=== PATIENT | female | born 1965 | race Caucasian/White ===

== ENCOUNTER 2017-02-12 08:23 | Inpatient (IN) ==
--- NOTE | 2017-02-12 14:21 | Event Note ---
Date of Encounter: 02/12/17 Time of Encounter: 14:18 Patient seen and examined with certified medical dosimetrist. Community acquired pneumonia and viral influenza. Start the patient on Levaquin, Tamiflu, nebulizer treatments as needed and rather add oral steroids. She developed supraventricular tachycardia. Mentioned that she has not taken her beta blockers. Will resume that. Check echocardiogram, thyroid functions, electrolytes serial troponin. Patient is full code.
[2017-02-12 15:41] LABS: Basophils % 0.1 %; Hematocrit 41.7 % (35.3-44.9); Hemoglobin 13.5 g/dL (11.5-15.4); Immature Granulocytes % 0.1 % (0-4); Lymphocytes # 1.5 K/mcL (0.6-4.6); Lymphocytes % 19.8 %; Mean Corpuscular HGB Conc 32.4 g/dL (31.6-35.5); Mean Corpuscular Hemoglobin 29.7 pg (28.0-33.3); Mean Corpuscular Volume 91.9 fL (83.0-100.0); Mean Platelet Volume 10.2 fL (9.4-12.4); Monocytes # 0.4 K/mcL (0.0-1.3); Monocytes % 4.8 %; Neutrophils # 5.7 K/mcL (1.6-8.9); Platelet Count 116 K/mcL (140-400); Red Blood Count 4.54 M/mcL (3.82-4.97); Red Cell Distribution Width 13.4 % (11.5-14.5); Segmented Neutrophils % 75.2 %
[2017-02-12 15:49] LABS: BUN/Creatinine Ratio 13 (6-26); Blood Urea Nitrogen 7 mg/dL (6-20); Carbon Dioxide 30 mEq/L (23-29); Chloride 106 mEq/L (98-107); Glucose 104 mg/dL (70-105); Magnesium 1.3 mg/dL (1.6-2.6); Osmolality,Calculated 290 (280-300); Potassium 3.2 mEq/L (3.5-5.1); Sodium 141 mEq/L (136-145); eGFR For African Americans > 60 (> 60); eGFR For Non-African Americans > 60 (> 60)
--- NOTE | 2017-02-12 15:51 | Internal Med History&Physical ---
Date of Encounter: 02/12/17 Time of Encounter: 15:00 Assessment and Plan (1) SVT (supraventricular tachycardia) Current visit: Yes Status: Acute Resolved currently Restarted home atenolol Will continue to monitor Checking echo, electrolytes, thyroid panel, and trending troponins (2) Pneumonia Current visit: Yes Status: Acute Possible LLL PNA. Started levaquin 750 mg daily Patient has 30+ pack years of smoking history Started prednsione 40 mg x 5 days breathing treatments q4 hrs as needed Qualifiers: Pneumonia type: due to unspecified organism Laterality: left Lung location: lower lobe of lung Qualified Code(s): J18.1 - Lobar pneumonia, unspecified organism (3) Influenza B Current visit: Yes Status: Acute Tested positive on swab Started Tamiflu 30 mg daily x 5 doses Isolation precautions (4) Elevated troponin I level Current visit: Yes Status: Acute Mildly elevated at 0.04 Will trend q6 hours for 2 additional draws (5) Back pain Current visit: Yes Status: Chronic Continue home medications Qualifiers: Back pain location: back pain in unspecified location Chronicity: chronic Back pain laterality: unspecified Qualified Code(s): M54.9 - Dorsalgia, unspecified; G89.29 - Other chronic pain; G89.29 - Other chronic pain Internal Medicine - H&P: HPI Chief complaint: Fever, cough, weakness, palpitations Admitted From: Emergency Dept Plans for Post Hospital Care: Home History of present illness: Ms. Paulino is a 52 year old female with 5 day history of fever, anorexia, and productive cough. The cough produces a thick, yellow sputum. She additionally noted body aches, and, more recently, palpitations. She admits to some exertional shortness of breath and weakness. Patient initially presented to [facility] and was found to have Flu B on swab, LLL PNA vs atelectasis, and SVT into the 180s. She slipped between SVT and sinus rhythm multiple times with valsalva and 1 dose of adenosine. Ultimately, lopressor was successful in controlling her rate. Patient has approximately 30 pack years of smoking history, but has recently cut back to 1 pack/3 weeks. Medical history is significant for an episode of SVT about 15 years ago, as well as restless leg syndrome and chronic back pain. Past Med Surg Social Fam HX - Past Medical History Medical history: hyperlipidemia, hypertension, SVT Psychiatric history: no psych history - Social History Smoking Status: Current every day smoker Packs per day: 0.05 Smokeless Tobacco Status: No Alcohol use: rarely Drug use: none Internal Medicine - H&P: Meds Atenolol [Tenormin] 25 mg PO DAILY 02/12/17 [History] Cyclobenzaprine [Flexeril] 10 mg PO TID 02/12/17 [History] Fentanyl [Duragesic] 75 mcg TD Q72H 02/12/17 [History] Gabapentin [Neurontin] 400 mg PO TID 02/12/17 [History] HYDROcodone/Acet 7.5/325 mg [[place] 7.5-325 mg] 1 tab PO Q6H PRN 02/12/17 [ History] Ibuprofen [Motrin] 800 mg PO Q8HR 02/12/17 [History] LORazepam [Ativan] 0.5 mg PO BID PRN 02/12/17 [History] Lisinopril [Zestril] 20 mg PO DAILY 02/12/17 [History] hydroCHLOROthiazide [Hydrochlorothiazide] 25 mg PO DAILY 02/12/17 [History] 3 Allergy/AdvReac Type Severity Reaction Status Date / Time No Known Allergies Allergy Verified 02/12/17 06:23 All Systems PM: A 10-system review of systems was performed and is negative for pertinent findings except as documented above in the HPI. - Constitutional Vitals: Temp Pulse Resp BP Pulse Ox 98.6 F 92 19 102/56 90 02/12/17 10:20 02/12/17 10:20 02/12/17 10:20 02/12/17 10:20 02/12/17 10:20 General appearance: Present: cooperative, A&O X 3, pleasant, answers questions appropriately - Head Head exam: Present: atraumatic, normal inspection, normocephalic - ENT ENT exam: Present: mucous membranes moist - Neck Neck exam general surgery: Present: trachea midline - Respiratory Respiratory exam: Present: decreased breath sounds. Absent: accessory muscle use, respiratory distress - Cardiovascular Cardiovascular exam: Present: RRR, +S1, +S2 - GI/Abdominal GI/Abdominal exam: Present: normal bowel sounds, soft, no peritoneal signs. Absent: tenderness - Extremities Exam Extremities exam: Absent: pedal edema - Neurological Exam Neurological exam: Present: alert, oriented X3 - Psychiatric Psychiatric exam: Present: normal affect, normal mood. Absent: agitated, anxious - Skin Skin exam: Present: dry, warm Internal Med - H&P Results - Labs CBC & Chem 7: 02/12/17 14:27 02/12/17 14:27
[2017-02-12] MEDS ORDERED: *HR* LORazepam 0.5 MG TABLET PO PRN (16:14)
[2017-02-12] MEDS ORDERED: *HR* FentaNYL PATCH 75 MCG PATCH TD SCH (16:15)
[2017-02-12] MEDS ORDERED: Oseltamivir Phosphate 30 MG CAPSULE PO SCH (16:30)
[2017-02-12] MEDS ORDERED: Naloxone 0.4 MG/ML INJ IVP PRN (16:35)
[2017-02-12] MEDS ORDERED: Ondansetron 4 MG/2 ML VIAL IVP PRN (16:35)
[2017-02-12] MEDS: Ipratropium/Albuterol Neb 3 ML IH PRN (17:04)
[2017-02-12 17:22] LABS: Toxic Granulation Present (Not Present)
[2017-02-12] MEDS: predniSONE 20 MG TABLET PO SCH (18:41)
[2017-02-12] MEDS: *HR* HYDROcodone/Acet 7.5/325 mg TABLET PO PRN (18:41)
[2017-02-12] MEDS: Levofloxacin 750 MG/150 ML 750 MG/150 ML BAG IVPB SCH (20:01)
[2017-02-12] MEDS: Gabapentin 400 MG CAPSULE PO SCH (20:02)
[2017-02-13 05:49] LABS: Hematocrit 40.7 % (35.3-44.9); Hemoglobin 13.2 g/dL (11.5-15.4); Mean Corpuscular HGB Conc 32.4 g/dL (31.6-35.5); Mean Corpuscular Hemoglobin 29.5 pg (28.0-33.3); Mean Corpuscular Volume 90.8 fL (83.0-100.0); Mean Platelet Volume 10.2 fL (9.4-12.4); Platelet Count 118 K/mcL (140-400); Red Blood Count 4.48 M/mcL (3.82-4.97); Red Cell Distribution Width 13.4 % (11.5-14.5)
[2017-02-13 05:58] LABS: BUN/Creatinine Ratio 18 (6-26); Blood Urea Nitrogen 8 mg/dL (6-20); Calcium 8.3 mg/dL (8.6-10.3); Carbon Dioxide 27 mEq/L (23-29); Chloride 108 mEq/L (98-107); Glucose 92 mg/dL (70-105); Osmolality,Calculated 290 (280-300); Potassium 3.7 mEq/L (3.5-5.1); Sodium 141 mEq/L (136-145); eGFR For African Americans > 60 (> 60); eGFR For Non-African Americans > 60 (> 60)
[2017-02-13 06:30] LABS: Monocytes # 0.5 K/mcL (0.0-1.3); Neutrophils # 5.3 K/mcL (1.6-8.9); Platelet Estimate Slight Decrease (Normal)
[2017-02-13] MEDS: *HR* HYDROcodone/Acet 7.5/325 mg TABLET PO PRN ×2 (06:31→13:08)
--- NOTE | 2017-02-13 09:10 | Cardiology Consult Note ---
<Jacob Hitchcock - Last Filed: 02/13/17 12:57> Date of Encounter: 02/13/17 Time of Encounter: 09:00 Assessment and Plan (1) SVT (supraventricular tachycardia) Current Visit: Yes Status: Acute Patient initially presented to [facility]; was found to have SVT with a heart rate in the 180s. -Patient admitted that she had not been taking her beta blockers. -Patient's heart rate is currently well controlled at 71 bpm. -Admits to a prior episode of SVT approximately 15 years ago. -TSH was within normal limits. ECHO demonstrated the following: -LVEF 60-65%. -Mild left ventricular diastolic dysfunction. -Normal right ventricular structure and function. -No significant valvular dysfunction. -No pulmonary hypertension. Plan: -Atenolol 25 mg PO QD -Cardiac diet -Continuous telemetry -Rate is currently well controlled; cardiology will sign off. Patient should have stress test in the outpatient setting through PCP. (2) Elevated troponin Current Visit: Yes Status: Acute Patient's troponin was slightly elevated on presentation at 0.04. Subsequent troponin levels were as follows: 0.03, 0.03. Possibly due to demand ischemia. Plan: -Continuous telemetry. (3) Hypertension Current Visit: Yes Status: Acute Pressure currently well-controlled. Continue medical therapy: -Hydrochlorothiazide 25 mg PO QD -Lisinopril 20 mg PO QD Qualifiers: Qualified Code(s): I10 - Essential (primary) hypertension Discussion w patient/family: The assessment and plan as outlined above was discussed with the patient and/or family members who expressed understanding and agreement. All questions were answered. Thank you for involving us in the care of your patient. Please call with any questions. History of Present Illness Consult date: 02/13/17 History of present illness: Ms. Paulino is a 52 year old female with a PMH of restless leg syndrome, chronic back pain, and tobacco abuse (30 pack years) who presented to the hospital with a chief complaint of a five-day history of fever, anorexia, and productive cough. Patient had thick yellow sputum. Reported body aches and palpitations as well. She also had shortness of breath and weakness. Initially presented to [facility]; was diagnosed with a LLL PNA and was diagnosed with influenza B. She also was found to have SVT with a HR into the 180s. Slipped between SVT and sinus rhythm multiple times with Valsalva and 1 dose of adenosine. HR was successfully controlled with Lopressor. Patient admits to having a previous episode of SVT approximately 15 years ago. Patient admitted that she had not been taking her beta blockers. Patient was started on Levaquin for the treatment of her pneumonia. Atenolol 25 mg by mouth daily was started. TSH and troponin were drawn; TSH was within normal limits. Troponin was initially elevated at 0.04; subsequent troponin levels were 0.03 and 0.03. Patient was also started on duo nebs, Tamiflu, and prednisone. Patient was seen and examined bedside this morning. Patient states that she is feeling well. Admits to having some cough, but denies having any shortness of breath, chest pain, nausea, vomiting, palpitations, fever, or chills. Patient is resting comfortably in bed and knows no complaints at this time. Past Med Surg Social Fam HX - Past Medical History Medical history: hyperlipidemia, hypertension, SVT Psychiatric history: no psych history - Social History Smoking Status: Current every day smoker Packs per day: 0.05 Smokeless Tobacco Status: No Alcohol use: rarely Drug use: none Medications and Allergies Atenolol [Tenormin] 25 mg PO DAILY 02/12/17 [History] Cyclobenzaprine [Flexeril] 10 mg PO TID 02/12/17 [History] Fentanyl [Duragesic] 75 mcg TD Q72H 02/12/17 [History] Gabapentin [Neurontin] 400 mg PO TID 02/12/17 [History] HYDROcodone/Acet 7.5/325 mg [[place] 7.5-325 mg] 1 tab PO Q6H PRN 02/12/17 [ History] Ibuprofen [Motrin] 800 mg PO Q8HR 02/12/17 [History] LORazepam [Ativan] 0.5 mg PO BID PRN 02/12/17 [History] Lisinopril [Zestril] 20 mg PO DAILY 02/12/17 [History] hydroCHLOROthiazide [Hydrochlorothiazide] 25 mg PO DAILY 02/12/17 [History] 3 Allergy/AdvReac Type Severity Reaction Status Date / Time No Known Allergies Allergy Verified 02/12/17 06:23 All Systems Review: A 10-system review of systems was performed and is negative for pertinent findings except as documented above in the HPI. - Cardiovascular Cardiovascular: no chest pain at rest, no chest pain with exertion, no dyspnea on exertion, no irregular heart rhythm, no radiating jaw, neck or arm pain - Respiratory Respiratory: cough, no dyspnea - Neurological Neurological: no syncope Physical Examination Vital Signs, Last 4 Hours Temp Pulse Resp BP Pulse Ox 02/13/17 07:22 97.1 F L 71 16 100/67 93 General: Conversant, No Apparent Distress HEENT: Atraumatic, Normocephaly, Mucus Membranes Moist Neck: No JVD, Normal carotid pulses Cardiac: Reg Rate and Rhythm, No Murmur Lungs: Other (diffuse crackles ) Neuro: Alert and responsive, No focal deficits noted Skin: No rashes noted on visualized skin Musculoskeletal: No Chest Wall Tenderness Extremities: No Clubbing, No Cyanosis, No Edema, Normal Pulses Results 02/13/17 05:26 02/13/17 05:26 Lab Results 02/12/17 02/12/17 02/12/17 14:27 14:27 14:27 WBC 7.6 Hgb 13.5 D Hct 41.7 Plt Count 116 L Sodium 141 Potassium 3.2 L Chloride 106 Carbon Dioxide 30 H BUN 7 Creatinine 0.52 L Glucose 104 Calcium 8.0 L Magnesium 1.3 L Troponin I 0.04 H* TSH 0.410 02/12/17 02/13/17 02/13/17 20:30 05:26 05:26 WBC 6.8 Hgb 13.2 Hct 40.7 Plt Count 118 L Sodium 141 Potassium 3.7 Chloride 108 H Carbon Dioxide 27 BUN 8 Creatinine 0.44 L Glucose 92 Calcium 8.3 L Magnesium Troponin I 0.03 TSH 02/13/17 05:26 WBC Hgb Hct Plt Count Sodium Potassium Chloride Carbon Dioxide BUN Creatinine Glucose Calcium Magnesium Troponin I < 0.03 TSH Consult Discharge Plan - Plan Referrals: Lazaro Bae MD [Primary Care Provider] - 02/19/17 3:15 pm (Please follow up as schedule...) <Scooby Metcalf - Last Filed: 02/13/17 14:46> Date of Encounter: 02/13/17 - Attending Attestation I examined this patient and my medical decision-making was reviewed with the Resident Physician. I agree with the documented findings, disposition and treatment plan as described except to the extent set forth below. 52 YOF with h/o SVT presents with episode of palpitation found to have HR >160 SVT possible EAT was off her BB last few days possibly culprit Multiple cardiac risk factors, recommend OP NST Resume BB as previously prescribed Assessment and Plan Discussion w patient/family: The assessment and plan as outlined above was discussed with the patient and/or family members who expressed understanding and agreement. All questions were answered. Thank you for involving us in the care of your patient. Please call with any questions. History of Present Illness History of present illness: Ms. Paulino is a 52 year old female All Systems Review: A 10-system review of systems was performed and is negative for pertinent findings except as documented above in the HPI. Physical Examination Vital Signs, Last 4 Hours Temp Pulse Resp BP Pulse Ox 02/13/17 11:33 98.4 F 77 16 120/78 95 Results 02/13/17 05:26 02/13/17 05:26 Lab Results 02/12/17 02/12/17 02/12/17 14:27 14:27 14:27 WBC 7.6 Hgb 13.5 D Hct 41.7 Plt Count 116 L Sodium 141 Potassium 3.2 L Chloride 106 Carbon Dioxide 30 H BUN 7 Creatinine 0.52 L Glucose 104 Calcium 8.0 L Magnesium 1.3 L Troponin I 0.04 H* TSH 0.410 02/12/17 02/13/17 02/13/17 20:30 05:26 05:26 WBC 6.8 Hgb 13.2 Hct 40.7 Plt Count 118 L Sodium 141 Potassium 3.7 Chloride 108 H Carbon Dioxide 27 BUN 8 Creatinine 0.44 L Glucose 92 Calcium 8.3 L Magnesium Troponin I 0.03 TSH 02/13/17 02/13/17 05:26 05:26 WBC Hgb Hct Plt Count Sodium Potassium Chloride Carbon Dioxide BUN Creatinine Glucose Calcium Magnesium 2.0 Troponin I < 0.03 TSH
[2017-02-13] MEDS: Levofloxacin 750 MG/150 ML 750 MG/150 ML BAG IVPB SCH (09:21)
[2017-02-13] MEDS: Lisinopril 20 MG TABLET PO SCH (09:22)
[2017-02-13] MEDS: hydroCHLOROthiazide 25 MG TABLET PO SCH (09:22)
[2017-02-13] MEDS: Gabapentin 400 MG CAPSULE PO SCH ×3 (09:22→19:40)
[2017-02-13] MEDS: predniSONE 20 MG TABLET PO SCH (09:22)
--- NOTE | 2017-02-13 11:54 | Internal Med Progress Note ---
Date of Encounter: 02/13/17 Time of Encounter: 11:52 - Assessment and plan (1) Pneumonia Current Visit: Yes Status: Acute Assessment and plan: Chest x-ray suggestive of left basal infiltrate. Continue IV Levaquin, supplemental oxygen. Follow-up blood cultures. Qualifiers: Pneumonia type: due to unspecified organism Laterality: left Lung location: lower lobe of lung Qualified Code(s): J18.1 - Lobar pneumonia, unspecified organism (2) Influenza B Current Visit: Yes Status: Acute Assessment and plan: Rapid influenza nasal swab tested positive for influenza B. However, it has been at least 5 days since symptom onset, will hold Tamiflu at this time. Continue supportive care, bronchodilators, oral steroids and antibiotics. (3) Tobacco abuse Current Visit: Yes Status: Chronic Assessment and plan: Smoking cessation counseling done. Patient will consider quitting smoking as an outpatient. (4) Acute respiratory failure Current Visit: Yes Status: Acute Assessment and plan: Due to underlying pneumonia and influenza. Continue supplemental oxygen. Patient will require home oxygen evaluation prior to discharge. Qualifiers: Respiratory failure complication: hypoxia Qualified Code(s): J96.01 - Acute respiratory failure with hypoxia (5) SVT (supraventricular tachycardia) Current Visit: Yes Status: Acute Assessment and plan: Presented with tachycardia and palpitations, noted to have supraventricular tachycardia, converted to sinus rhythm with a dose of IV adenosine. Patient was supposed to be on atenolol at home, but she may have missed a few doses for the last few doses. Cardiology consulted, with follow-up recommendations. Echocardiogram shows preserved ejection fraction, mild left ventricular diastolic dysfunction. Continue telemetry monitoring. (6) Hypertension Current Visit: Yes Status: Chronic Qualifiers: Hypertension type: essential hypertension Qualified Code(s): I10 - Essential (primary) hypertension - Subjective Interval history: Feels better; improving weakness, malaise, cough, shortness of breath; requires NC O2; no nausea, vomiting, fever, chills; - Constitutional Vitals: Temp Pulse Resp BP Pulse Ox 98.4 F 77 16 120/78 95 02/13/17 11:33 02/13/17 11:33 02/13/17 11:33 02/13/17 11:33 02/13/17 11:33 General appearance: Present: A&O X 3, answers questions appropriately - Respiratory Respiratory exam: Present: decreased breath sounds (at B/L bases), CTAB, rhonchi (intermittent rhonchi at left base). Absent: accessory muscle use, rales, wheezes - Cardiovascular Cardiovascular exam: Present: RRR, +S1, +S2. Absent: diastolic murmur, gallop, rubs, systolic murmur - GI/Abdominal GI/Abdominal exam: Present: normal bowel sounds, soft, no peritoneal signs. Absent: distended, tenderness - Extremities Exam Extremities exam: Present: full ROM, warm, radial pulses palpable and symmetrical. Absent: calf tenderness, cyanotic, pedal edema - Neurological Exam Neurological exam: Present: CN II-XII intact, oriented X3, no focal deficits. Absent: pronater drift, facial droop, speech deficit Internal Medicine: Result - Labs CBC & Chem 7: 02/13/17 05:26 02/13/17 05:26 Labs: Short CBC 02/12/17 02/13/17 Range/Units 14:27 05:26 WBC 7.6 6.8 (4.3-11.1) K/mcL Hgb 13.5 D 13.2 (11.5-15.4) g/dL Hct 41.7 40.7 (35.3-44.9) % Plt Count 116 L 118 L (140-400) K/mcL Neutrophils # 5.7 5.3 (1.6-8.9) K/mcL BMP 02/12/17 02/13/17 14:27 05:26 Sodium 141 141 Potassium 3.2 L 3.7 Chloride 106 108 H Carbon Dioxide 30 H 27 BUN 7 8 Creatinine 0.52 L 0.44 L Glucose 104 92 Calcium 8.0 L 8.3 L Cardiac Enzymes 02/12/17 02/12/17 02/13/17 Range/Units 14:27 20:30 05:26 Troponin I 0.04 H* 0.03 < 0.03 (< 0.04) ng/mL - Impressions Impressions Echocardiogram 02/12/17 16:03 Impressions: LVEF 60-65%. Mild left ventricular diastolic dysfunction. Normal right ventricular structure and function. No significant valvular dysfunction. No pulmonary hypertension. Left Ventricular Wall Motion: Rest Echo Findings All wall segments showed normal motion. Findings: Study Quality * Technically adequate exam. ECG Findings * Normal sinus rhythm with ectopy. Left Ventricle * LVEF 60-65%. * Normal LV chamber size, wall thickness and function. * Mild left ventricular diastolic dysfunction. Right Ventricle * Normal right ventricular structure and function. Left Atrium * Normal left atrial size. Right Atrium * Normal right atrial size. Aortic Valve * No aortic regurgitation. * Trileaflet aortic valve. * No aortic stenosis. Mitral Valve * Normal mitral valve structure. * No mitral stenosis. * Trace mitral regurgitation. Tricuspid Valve * Tricuspid valve not well visualized. * No tricuspid regurgitation. * Estimated RA pressure is 3 mmHg. * Estimated RVSP is 32 mmHg. * No pulmonary hypertension. Pulmonic Valve * Pulmonic valve is not well visualized. * No pulmonic stenosis. * No pulmonic regurgitation. Pulmonary Artery * Pulmonary artery not well visualized. Aorta * Not well visualized. Pericardium * There is no pericardial effusion present. Interatrial Septum * No evidence of PFO by color Doppler. IVC * Normal IVC dimensions and inspiratory collapse. Consult Discharge Plan - Plan Instructions: Acute Respiratory Distress Syndrome (DC), Pneumonia (DC) Referrals: Lazaro Bae MD [Primary Care Provider] - 02/19/17 3:15 pm (Please follow up as schedule...) Prescriptions: levoFLOXacin [Levaquin] 750 mg PO DAILY #3 tablet predniSONE [PredniSONE] 40 mg PO DAILY 5 Days tablet
[2017-02-13] MEDS: Ipratropium/Albuterol Neb 3 ML IH PRN (15:43)
[2017-02-14] MEDS: *HR* HYDROcodone/Acet 7.5/325 mg TABLET PO PRN ×3 (01:55→16:03)
[2017-02-14] MEDS: *HR* Heparin 5,000 UNIT/ML VIAL SQ SCH ×2 (05:32→18:33)
[2017-02-14] MEDS: hydroCHLOROthiazide 25 MG TABLET PO SCH (08:17)
[2017-02-14] MEDS: Lisinopril 20 MG TABLET PO SCH (08:17)
[2017-02-14] MEDS: Gabapentin 400 MG CAPSULE PO SCH ×2 (08:17→14:24)
[2017-02-14] MEDS: predniSONE 20 MG TABLET PO SCH (08:17)
[2017-02-14] MEDS: Levofloxacin 750 MG/150 ML 750 MG/150 ML BAG IVPB SCH (08:17)
[2017-02-14 15:44] VITALS: BP 117/60
--- NOTE | 2017-02-14 16:33 | Discharge Summary ---
Date of Encounter: 02/14/17 Time of Encounter: 16:31 - Discharge Diagnosis (1) Pneumonia Priority: Primary Status: Acute Qualifiers: Pneumonia type: due to unspecified organism Laterality: left Lung location: lower lobe of lung Qualified Code(s): J18.1 - Lobar pneumonia, unspecified organism (2) Influenza B Priority: Primary Status: Acute (3) Tobacco abuse Priority: Secondary Status: Chronic (4) Acute respiratory failure Priority: Primary Status: Acute Qualifiers: Respiratory failure complication: hypoxia Qualified Code(s): J96.01 - Acute respiratory failure with hypoxia (5) SVT (supraventricular tachycardia) Priority: Primary Status: Acute (6) Hypertension Priority: Secondary Status: Chronic Qualifiers: Hypertension type: essential hypertension Qualified Code(s): I10 - Essential (primary) hypertension - Discharge Medications Prescriptions: levoFLOXacin [Levaquin] 750 mg PO DAILY #3 tablet predniSONE [PredniSONE] 40 mg PO DAILY 5 Days tablet Home Medications: Atenolol [Tenormin] 25 mg PO DAILY 02/12/17 [History] Cyclobenzaprine [Flexeril] 10 mg PO TID 02/12/17 [History] Fentanyl [Duragesic] 75 mcg TD Q72H 02/12/17 [History] Gabapentin [Neurontin] 400 mg PO TID 02/12/17 [History] HYDROcodone/Acet 7.5/325 mg [[place] 7.5-325 mg] 1 tab PO Q6H PRN 02/12/17 [ History] Ibuprofen [Motrin] 800 mg PO Q8HR 02/12/17 [History] LORazepam [Ativan] 0.5 mg PO BID PRN 02/12/17 [History] Lisinopril [Zestril] 20 mg PO DAILY 02/12/17 [History] hydroCHLOROthiazide [Hydrochlorothiazide] 25 mg PO DAILY 02/12/17 [History] levoFLOXacin [Levaquin] 750 mg PO DAILY #3 tablet 02/14/17 [Rx] predniSONE [PredniSONE] 40 mg PO DAILY 5 Days tablet 02/14/17 [Rx] Allergies/Adverse Reactions: 3 Allergy/AdvReac Type Severity Reaction Status Date / Time No Known Allergies Allergy Verified 02/12/17 06:23 Procedures/tests Complete & Pending: Procedures Performed prior 72 hours Category Date Time Status EV echocardiogram Routine Y 02/12/17 16:03 Completed Date of admission: 02/12/17 18:45 Primary care physician: Lazaro Bea MD Consults: 02/12/17 14:42 Consult to Nutrition [CONS] Routine Comment: Consulting Provider: NUTRITION Reason for Dietary Consult: MST Score 02/12/17 16:41 Consult to Cardiology [CONS] Routine Comment: Consulting Provider: Cardiology Yvette Reason for Consult: SVT Call Completed: No Discharging clinician: Tammy Tolbert Anticipated date of discharge: 02/14/17 - Patient Status Disposition: Home, Self-Care Condition: Good Functional capacity at discharge: independent ambulation Overall status at discharge: patient is progressing back to baseline - Discharge Instructions Instructions: Acute Respiratory Distress Syndrome (DC), Pneumonia (DC) Follow Up With: Lazaro Bae MD [Primary Care Provider] - 02/19/17 3:15 pm (Please follow up as schedule...) - Diet and Activity Activity: wear oxygen at all times Diet: low fat, low cholesterol, low salt diet Hospital course: Ms. Paulino is a 52 year old female who was initially admitted with worsening shortness of breath and cough. Chest x-ray done in the emergency room showed possible left basilar infiltrate and she was started on empiric IV antibiotics. Rapid influenza testing was positive for influenza a, however she did not receive a course of Tamiflu, symptom onset has been greater than 5 days at the time of presentation. She was noted to have acute hypoxic respiratory failure. Home oxygen evaluation was completed prior to her discharge. She was noted to require 2 L/ m supplemental oxygen via nasal cannula, continuously. She is noted to be mobile at home and would benefit from portable home oxygen. Patient also developed tachycardia in the emergency room, noted to have supraventricular tachycardia that responded to a dose of IV adenosine. She was evaluated by cardiology and restarted on beta mark, which she stopped a few days earlier. Her episode is probably provoked by underlying acute bronchitis and illness. Telemetry monitoring on the floor remained uneventful. Patient is now medically stable for discharge with outpatient follow-up. - Time Spent with Patient Total time spent providing and/or coordinating discharge services: Greater than 30 minutes (45 min) - Constitutional Vitals: Temp Pulse Resp BP Pulse Ox 98.9 F 79 18 117/60 98 02/14/17 15:13 02/14/17 15:13 02/14/17 15:13 02/14/17 15:13 02/14/17 16:25 General appearance: Present: A&O X 3, answers questions appropriately - Respiratory Respiratory exam: Present: CTAB. Absent: accessory muscle use, rales, rhonchi, wheezes
[2017-02-15] MEDS ORDERED: levoFLOXacin 750 MG TABLET PO SCH (09:00)
== END 2017-02-14 18:30 | disposition home or self-care (01) | DRG 193 ==
LOC: 2ANU → SUATTDRO 18:45
PROVIDERS: ADMIT Internal Medicine; ATTEND Internal Medicine